=== PATIENT | male | born 1975 | race Caucasian/White ===

== ENCOUNTER → 2016-10-01 | Outpatient (CLI) | payer OTHER ==
[~2016-10-01] MED LIST: ALPR-411 PO; POTATAB2 PO; SERT-234 PO
--- NOTE | 2016-10-01 10:57 | DIAGNOSTIC IMAGING REPORT ---
CHEST CT WITHOUT CONTRAST CT DOSE: 302.12 mGy.cm HISTORY: Aortic root distention AORTIC ROOT DILATION TECHNIQUE: Multiaxial CT images of the chest were performed without contrast. COMPARISON: 03/19/2016 FINDINGS: Lungs are clear. Mild aortic root distention with cross-sectional measurements of approximately 3.7 x 4.6 cm. This is essentially unchanged from the prior exam. No hilar or mediastinal adenopathy. IMPRESSION: Stable mild/moderate distention of the aortic root. No change in transverse dimensions. Otherwise negative CT of the chest Electronically signed by: Lionel Regalado M.D. 10/01/2016 10:56 AM Dictated Date/Time: 10/01/2016 10:53 AM
== END | disposition home or self-care (01) ==
LOC: C.CTS 10:11
PROVIDERS: ATTEND Internal Medicine Interventional Cardiology
DX: I77.810 Thoracic aortic ectasia (principal)

== ENCOUNTER → 2017-04-06 | Outpatient (CLI) | payer OTHER ==
--- NOTE | 2017-04-06 10:06 | DIAGNOSTIC IMAGING REPORT ---
(CHEST) THORAX WITHOUT CLINICAL HISTORY: 41 years-old Male presenting with AORTIC ROOT DILATION. TECHNIQUE: Multidetector CT imaging of the chest was performed without the use of intravenous contrast. IV contrast: None. A dose lowering technique was used consistent with the principles of ALARA (as low as reasonably achievable). COMPARISON: 10/01/2016. CT DOSE (mGy.cm): The estimated cumulative dose is 360.82 mGycm. FINDINGS: [employer] topogram: Unremarkable. On soft tissue windows, subcentimeter nodule in the left thyroid lobe is suspected, unchanged from prior. No axillary, supraclavicular, hilar, or mediastinal lymphadenopathy. Evaluation of the aorta is limited due to nongated technique. Within this limitation, the aortic root now measures 4.5 cm in maximal diameter, previously 4.5 cm. The remainder of the ascending aorta, aortic arch, and descending aorta are normal in caliber. Normal heart size. No pericardial or pleural effusion. Nonobstructing left renal calculus. On lung windows, old calcified granuloma noted in the right upper lobe. Airways patent. On bone windows, normal osseous structures. IMPRESSION: 1. Stable appearance of the dilated aortic root, which measures 4.5 cm in maximal diameter. Subsequent evaluations would be improved with gated technique as well as intravenous contrast. 2. Nonobstructing left renal calculus. Electronically signed by: Oscar Jenkins M.D. 04/06/2017 10:04 AM Dictated Date/Time: 04/06/2017 10:00 AM
== END | disposition home or self-care (01) ==
LOC: C.CTS 09:25
PROVIDERS: ATTEND Internal Medicine Interventional Cardiology
DX: I77.810 Thoracic aortic ectasia (principal); R29.91 Unspecified symptoms and signs involving the musculoskeletal system; N20.0 Calculus of kidney

== ENCOUNTER → 2017-04-06 | Outpatient (CLI) | payer OTHER ==
--- NOTE | 2017-04-06 10:35 | DIAGNOSTIC IMAGING REPORT ---
KUB HISTORY: N20.0 [id number] COMPARISON: CT chest 04/06/2017, KUB 06/01/2016. FINDINGS: The bowel gas pattern is non-obstructive. There is no organomegaly. Phleboliths are seen within the pelvis. 3 mm calculus of the interpolar left kidney redemonstrated. No definite right nephrolithiasis or ureteral calculi identified. No pneumoperitoneum or pneumatosis. No fracture. IMPRESSION: 1. Unchanged 3 mm left renal calculus. 2. Nonobstructive bowel gas pattern. Electronically signed by: Kyler Arias M.D. 04/06/2017 10:33 AM Dictated Date/Time: 04/06/2017 10:31 AM
== END | disposition home or self-care (01) ==
LOC: C.RAD 09:39
PROVIDERS: ATTEND Urology
DX: N20.0 Calculus of kidney (principal)